=== PATIENT | female | born 1990 | race Caucasian/White ===

== ENCOUNTER → 2024-07-01 | Outpatient (CLI) | payer OTHER ==
--- NOTE | 2024-07-02 10:15 | MR ---
EXAMINATION TYPE: MR Facial wo/w con DATE OF EXAM: 07/01/2024 10:09 AM COMPARISON: None. 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 FINDINGS: Multiplanar multisequence imaging of the facial structures is submitted. Images of the brai n are not included. Orbits are symmetric. Sinuses are clear. Minimal mucosal thickening involving ethmoid air cells no en hancing mass or mass effect. Submandibular and parotid glands are symmetric. Oropharynx and nasophary nx are symmetric. Visualized intracranial structures are symmetric with no abnormal signal. Midline structures demonstrate normal morphology. Low-lying cerebellar tonsils without evidence of di screte tearing malformation. Post contrast images demonstrate no abnormal enhancement. No evidence of cerebellopontine angle mass. No acoustic schwannoma. Scattered subcentimeter short axi s nonpathologic lymph nodes are seen in the soft tissue compartments of the neck. IMPRESSION: Minimal ethmoidal sinusitis. [facility], , 07/02/2024 10:12 AM
== END | disposition home or self-care (01) ==
LOC: RADMRIMAIN 08:49
PROVIDERS: ATTEND Psychiatry & Neurology Neurology
DX: J32.2 Chronic ethmoidal sinusitis (principal); G50.1 Atypical facial pain
CPT/HCPCS: 70553; A9585